=== PATIENT | male | born 1950 | race Caucasian/White ===

== ENCOUNTER 2016-10-17 19:04 | Inpatient (IN) | payer BC, MEDICARE, OTHER ==
[~2016-10-17] VITALS: Ht 177.8 cm; Wt 110.0 kg
[~2016-10-17 19:04] MED LIST: ALBU0.63 NEB; ALBU8.5H3 INH; ALPR0.5T6 PO; CYAN500T2 PO; CYCL-259 PO; FLUN25SP INH; FOLI-17 PO; HYDR-3307 PO; INSU100V10 SQ; INSU100V8 SQ; KETO5DRO7 OP; LACT1CAP35 PO; LEFL10TA14 PO; METO-95 PO; METO25TA35 PO; MODA200T2 PO; OMEP-110 PO; OXYC80TA25 PO; PRED10TA PO; ROSU40TA PO; TOCI162D INJ
[2016-10-17] MEDS ORDERED: PROPOFOL 100 ML IV ONE (21:24)
[2016-10-17] MEDS ORDERED: NS + 20MEQ KCL 1,000 ML IV SCH (21:59)
[2016-10-17 22:00] VITALS: BP 106/76
[2016-10-17] MEDS ORDERED: FENTANYL PF 2,500 MCG in SODIUM CHLORIDE 0.9% 200 ML IV PRN (22:00)
[2016-10-17] MEDS ORDERED: ONDANSETRON 2MG/ML, 2ML IVPush PRN (22:00)
[2016-10-17] MEDS ORDERED: POLYETHYLENE GLYCOL 17 GM PACKET PO PRN (22:00)
[2016-10-17] MEDS ORDERED: LORazepam 2 MG/ML, 1ML IVPush PRN (22:00)
[2016-10-17] MEDS ORDERED: DOCUSATE 100 MG CAPSULE PO PRN (22:00)
[2016-10-17] MEDS ORDERED: PLEASE ENTER HEIGHT AND WEIGHT MC SCH (22:30)
[2016-10-17] MEDS: NAFCILLIN 2 GM in DEXTROSE 5% 100 ML IV SCH (23:05)
[2016-10-17] MEDS: INSULIN ASPART 100 UNITS/ML, PEN SQ-INSULIN SCH (23:20)
[2016-10-18] MEDS: PROPOFOL 100 ML IV PRN ×6 (00:56→21:46)
[2016-10-18] MEDS ORDERED: LIDOCAINE-MPF 1%, 2ML ENDO PRN (01:00)
[2016-10-18] MEDS: ALBUTEROL/IPRATROPIUM 2.5MG/0.5MG, 3 ML INLINE SCH ×6 (01:00→22:00)
[2016-10-18] MEDS ORDERED: PHARMACY MAY ADJ FOR RENAL FX MC SCH (01:00)
[2016-10-18] MEDS: NAFCILLIN 2 GM in DEXTROSE 5% 100 ML IV SCH ×2 (03:03→06:48)
[2016-10-18] MEDS: FENTANYL PF 2,500 MCG in SODIUM CHLORIDE 0.9% 200 ML IV PRN (03:34)
[2016-10-18 04:00] VITALS: BP 124/76
[2016-10-18 04:32] LABS: ABG COLLECTION SITE RIGHT RADIAL; COLLATERAL CIRCULATION TESTING NORMAL
[2016-10-18] MEDS: INSULIN ASPART 100 UNITS/ML, PEN SQ-INSULIN SCH ×4 (04:55→21:48)
[2016-10-18 05:15] LABS: ASPARTATE AMINO TRANSFERASE 18 U/L (15-37); BLOOD UREA NITROGEN 15 mg/dL (7-18)
[2016-10-18] MEDS ORDERED: SODIUM CHLORIDE 0.9%, 500ML IVBOLUS ONE ×2 (07:30→22:00)
[2016-10-18] MEDS ORDERED: NAFCILLIN IVPB SCH (09:30)
[2016-10-18] MEDS ORDERED: SODIUM CHLORIDE 0.9% 1,000ML IV ONE (09:30)
[2016-10-18] MEDS ORDERED: DEXTROSE 5% IVPB SCH (09:30)
[2016-10-18] MEDS ORDERED: METOPROLOL TARTRATE 25 MG TABLET PO SCH (11:30)
[2016-10-18] MEDS: PANTOPRAZOLE 40 MG IV IVPush SCH (12:22)
[2016-10-18] MEDS: SENNA/DOCUSATE TABLET PO SCH (12:23)
[2016-10-18] MEDS: POTASSIUM CHLORIDE 20 MEQ PACKET NG SCH ×2 (12:23→21:48)
[2016-10-18 14:07] LABS: C-REACTIVE PROTEIN, QUANT > 19.00 mg/dL (0.02-0.49)
[2016-10-18] MEDS: METOPROLOL TARTRATE 25 MG TABLET PO SCH (17:24)
[2016-10-18] MEDS: NS + 20MEQ KCL 1,000 ML IV SCH (22:37)
[2016-10-18] MEDS: morphine SULFATE 10 MG/ML, 1ML IVPush PRN (23:05)
[2016-10-19] MEDS: METOPROLOL TARTRATE 25 MG TABLET PO SCH ×5 (00:19→20:56)
[2016-10-19] MEDS: PROPOFOL 100 ML IV PRN ×5 (01:17→22:23)
[2016-10-19] MEDS: FENTANYL PF 2,500 MCG in SODIUM CHLORIDE 0.9% 200 ML IV PRN ×2 (01:45→14:12)
[2016-10-19] MEDS: ALBUTEROL/IPRATROPIUM 2.5MG/0.5MG, 3 ML INLINE SCH ×2 (01:55→06:32)
[2016-10-19 03:20] LABS: BLOOD UREA NITROGEN 13 mg/dL (7-18)
[2016-10-19] MEDS ORDERED: DILTIAZEM 5 MG/ML, 5ML IVPush ONE (04:00)
[2016-10-19] MEDS: morphine SULFATE 10 MG/ML, 1ML IVPush PRN ×2 (04:06→20:53)
[2016-10-19] MEDS: INSULIN ASPART 100 UNITS/ML, PEN SQ-INSULIN SCH ×4 (04:08→20:55)
[2016-10-19] MEDS: NS + 20MEQ KCL 1,000 ML IV SCH ×3 (04:23→17:04)
[2016-10-19] MEDS ORDERED: DILTIAZEM 125 MG in SODIUM CHLORIDE 0.9% 100 ML IV PRN (04:30)
[2016-10-19 04:40] LABS: ABG COLLECTION SITE NOT DOCUMENTED
[2016-10-19] MEDS: PANTOPRAZOLE 40 MG IV IVPush SCH (10:24)
[2016-10-19] MEDS: SENNA/DOCUSATE TABLET PO SCH (10:25)
[2016-10-19] MEDS: DILTIAZEM 30 MG TABLET PO SCH ×3 (10:35→20:55)
[2016-10-19] MEDS: NAFCILLIN IVPB SCH (10:35)
[2016-10-19] MEDS: SODIUM CHLORIDE 0.9% IVPB SCH (10:35)
[2016-10-19] MEDS ORDERED: ONDANSETRON 2MG/ML, 2ML IVPush PRN (14:30)
[2016-10-19] MEDS ORDERED: FLUNISOLIDE INH PRN (14:30)
[2016-10-19] MEDS ORDERED: METHOCARBAMOL 750 MG TABLET PO PRN (14:30)
[2016-10-19] MEDS ORDERED: MAGNESIUM HYDROXIDE 8%, 30ML UDC PO PRN (14:30)
[2016-10-19] MEDS ORDERED: OxyconTIN ER 40 MG TAB.ER PO PRN (14:30)
[2016-10-19] MEDS ORDERED: morphine SULFATE 10 MG/ML, 1ML IVPush PRN (14:30)
[2016-10-19] MEDS ORDERED: INSULIN REGULAR 100 UNITS/ML, 3ML VIAL SQ-INSULIN SCH (14:30)
[2016-10-19] MEDS ORDERED: ALBUTEROL SULFATE 2.5 MG/3 ML NEB PRN (14:30)
[2016-10-19] MEDS ORDERED: BISACODYL 10 MG SUPP PR PRN (14:30)
[2016-10-19] MEDS ORDERED: MODAFINIL 100 MG TABLET PO PRN (14:30)
[2016-10-19] MEDS ORDERED: DIPHENHYDRAMINE 50 MG/ML, 1ML IVPush PRN (14:30)
[2016-10-19] MEDS ORDERED: HYDROcodone/APAP 10/325 MG TABLET PO PRN (14:30)
[2016-10-19] MEDS ORDERED: SENNA/DOCUSATE TABLET PO PRN (14:30)
[2016-10-19] MEDS ORDERED: PHARMACY MAY ADJ FOR RENAL FX MC PRN (14:30)
[2016-10-19] MEDS ORDERED: PROMETHAZINE 25 MG/ML, 1ML IM PRN (14:30)
[2016-10-19] MEDS ORDERED: KETOTIFEN FUMARATE OP PRN (14:30)
[2016-10-19] MEDS ORDERED: NS + 20MEQ KCL 1,000 ML IV SCH (14:30)
[2016-10-19] MEDS ORDERED: ALBUTEROL SULFATE 2.5 MG/3 ML NPPB PRN (14:30)
[2016-10-19] MEDS ORDERED: PROPOFOL 10 MG/ML, 50ML ONE (15:02)
[2016-10-19] MEDS ORDERED: ROCURONIUM 10 MG/ML ONE (15:02)
[2016-10-19] MEDS ORDERED: FENTANYL PF 100 MCG/2ML ONE (15:39)
[2016-10-19] MEDS ORDERED: BUPIVACAINE/PF-EPI 0.5% 1:200K INFIL ONE (15:50)
[2016-10-19] MEDS ORDERED: THROMBIN 5,000 UNIT VIAL TP ONE (16:26)
[2016-10-19] MEDS: LACTOBACILLUS CHEW TABLET PO SCH (16:59)
[2016-10-19] MEDS: ATORVASTATIN 40 MG TABLET PO SCH (20:55)
[2016-10-19] MEDS ORDERED: INSULIN DETEMIR 100 UNITS/ML, PEN SQ-INSULIN SCH (21:00)
[2016-10-19] MEDS: ACETAMINOPHEN 325 MG TABLET PO PRN (21:39)
[2016-10-20] MEDS: NS + 20MEQ KCL 1,000 ML IV SCH ×2 (00:40→07:20)
[2016-10-20] MEDS: FENTANYL PF 2,500 MCG in SODIUM CHLORIDE 0.9% 200 ML IV PRN ×2 (02:43→17:06)
[2016-10-20] MEDS ORDERED: DILTIAZEM 5 MG/ML, 5ML IVPush PRN (03:00)
[2016-10-20] MEDS: DILTIAZEM 5 MG/ML, 5ML IVPush PRN (03:09)
[2016-10-20] MEDS: DILTIAZEM 30 MG TABLET PO SCH ×4 (03:11→21:13)
[2016-10-20 04:28] LABS: ABG COLLECTION SITE RIGHT RADIAL; COLLATERAL CIRCULATION TESTING NORMAL
[2016-10-20 04:39] LABS: BLOOD UREA NITROGEN 12 mg/dL (7-18)
[2016-10-20] MEDS: PROPOFOL 100 ML IV PRN ×3 (04:48→23:54)
[2016-10-20] MEDS: METOPROLOL TARTRATE 25 MG TABLET PO SCH ×4 (04:51→21:13)
[2016-10-20] MEDS: INSULIN ASPART 100 UNITS/ML, PEN SQ-INSULIN SCH ×4 (04:51→21:11)
[2016-10-20] MEDS: SENNA/DOCUSATE TABLET PO SCH (08:34)
[2016-10-20] MEDS: CYANOCOBALAMIN 1,000 MCG TABLET PO SCH (08:36)
[2016-10-20] MEDS: FOLIC ACID 1 MG TABLET PO SCH (08:38)
[2016-10-20] MEDS ORDERED: METOPROLOL SUCCINATE 100 MG TAB.ER.24H PO SCH (09:00)
[2016-10-20] MEDS: OMEPRAZOLE 20 MG CAPSULE.DR PO SCH (09:19)
[2016-10-20] MEDS: NAFCILLIN IVPB SCH (13:19)
[2016-10-20] MEDS: SODIUM CHLORIDE 0.9% IVPB SCH (13:19)
[2016-10-20] MEDS: LACTOBACILLUS CHEW TABLET PO SCH (17:06)
[2016-10-20] MEDS ORDERED: HEPARIN 5,000 UNITS/ML, 1ML IV ONE (18:00)
[2016-10-20] MEDS ORDERED: HEPARIN 25,000 UNITS/500ML PMX 500 ML IV PRN (18:00)
[2016-10-20] MEDS: ATORVASTATIN 40 MG TABLET PO SCH (21:13)
[2016-10-21] MEDS: HEPARIN 5,000 UNITS/ML, 1ML IV PRN ×3 (03:40→20:24)
[2016-10-21] MEDS: DILTIAZEM 30 MG TABLET PO SCH ×4 (04:24→20:58)
[2016-10-21 04:40] LABS: ABG COLLECTION SITE RIGHT RADIAL; COLLATERAL CIRCULATION TESTING NORMAL
[2016-10-21 04:57] LABS: BLOOD UREA NITROGEN 17 mg/dL (7-18)
[2016-10-21] MEDS: INSULIN ASPART 100 UNITS/ML, PEN SQ-INSULIN SCH ×4 (05:03→22:10)
[2016-10-21] MEDS: METOPROLOL TARTRATE 25 MG TABLET PO SCH ×4 (05:03→22:51)
[2016-10-21] MEDS: ALBUTEROL/IPRATROPIUM 2.5MG/0.5MG, 3 ML INLINE PRN ×2 (07:07→10:12)
[2016-10-21] MEDS: SODIUM BICARBONATE 4.2%, 5ML NPPB SCH ×5 (07:30→22:00)
[2016-10-21] MEDS ORDERED: SODIUM BICARBONATE 4.2%, 5ML ONE (07:31)
[2016-10-21] MEDS: FENTANYL PF 2,500 MCG in SODIUM CHLORIDE 0.9% 200 ML IV PRN ×2 (08:47→22:48)
[2016-10-21] MEDS: OMEPRAZOLE 20 MG CAPSULE.DR PO SCH (08:53)
[2016-10-21] MEDS: SENNA/DOCUSATE TABLET PO SCH (08:53)
[2016-10-21] MEDS: FOLIC ACID 1 MG TABLET PO SCH (08:54)
[2016-10-21] MEDS: CYANOCOBALAMIN 1,000 MCG TABLET PO SCH (08:54)
[2016-10-21] MEDS: PROPOFOL 100 ML IV PRN ×2 (09:58→14:57)
[2016-10-21] MEDS ORDERED: LIDOCAINE 2%, 20ML ONE ×2 (09:58→11:33)
[2016-10-21] MEDS ORDERED: ALBUMIN HUMAN 25% 100 ML IV ONE (10:00)
[2016-10-21] MEDS ORDERED: FUROSEMIDE 40 MG/4 ML IV ONE (10:00)
[2016-10-21] MEDS ORDERED: POTASSIUM CHLORIDE 20 MEQ TAB.ER.PRT PO ONE (10:00)
[2016-10-21] MEDS: DILTIAZEM 5 MG/ML, 5ML IVPush PRN (11:48)
[2016-10-21] MEDS ORDERED: VISIPAQUE 270 MG/ML, 50ML BOTTLE ONE (12:24)
[2016-10-21] MEDS: SODIUM CHLORIDE 0.9% IVPB SCH (13:40)
[2016-10-21] MEDS: NAFCILLIN IVPB SCH (13:40)
[2016-10-21] MEDS: ALBUTEROL SULFATE 2.5 MG/3 ML NPPB SCH ×3 (14:12→22:00)
[2016-10-21] MEDS ORDERED: FUROSEMIDE 40 MG/4 ML ONE (14:45)
[2016-10-21] MEDS: LACTOBACILLUS CHEW TABLET PO SCH (17:14)
[2016-10-21] MEDS: ATORVASTATIN 40 MG TABLET PO SCH (20:57)
[2016-10-22] MEDS: PROPOFOL 100 ML IV PRN ×5 (00:17→18:00)
[2016-10-22] MEDS: SODIUM BICARBONATE 4.2%, 5ML NPPB SCH ×6 (02:05→22:20)
[2016-10-22] MEDS: ALBUTEROL SULFATE 2.5 MG/3 ML NPPB SCH ×6 (02:05→22:20)
[2016-10-22 03:51] LABS: ABG COLLECTION SITE RIGHT RADIAL; COLLATERAL CIRCULATION TESTING NORMAL
[2016-10-22 04:04] VITALS: BP 145/70
[2016-10-22] MEDS: HEPARIN 5,000 UNITS/ML, 1ML IV PRN (04:09)
[2016-10-22] MEDS: DILTIAZEM 30 MG TABLET PO SCH ×4 (04:09→21:20)
[2016-10-22] MEDS: INSULIN ASPART 100 UNITS/ML, PEN SQ-INSULIN SCH ×4 (04:23→22:31)
[2016-10-22] MEDS: METOPROLOL TARTRATE 25 MG TABLET PO SCH ×4 (04:48→23:48)
[2016-10-22 04:54] LABS: BLOOD UREA NITROGEN 22 mg/dL (7-18)
[2016-10-22] MEDS ORDERED: POTASSIUM CHLORIDE 10% 40 MEQ/30 ML UDC PO ONE (07:30)
[2016-10-22] MEDS: CYANOCOBALAMIN 1,000 MCG TABLET PO SCH (10:02)
[2016-10-22] MEDS: FOLIC ACID 1 MG TABLET PO SCH (10:04)
[2016-10-22] MEDS: OMEPRAZOLE 20 MG CAPSULE.DR PO SCH (10:04)
[2016-10-22] MEDS: SENNA/DOCUSATE TABLET PO SCH (10:04)
[2016-10-22] MEDS: FENTANYL PF 2,500 MCG in SODIUM CHLORIDE 0.9% 200 ML IV PRN (11:37)
[2016-10-22] MEDS ORDERED: TALC 30 GM AERO.PWD INTRAPL ONE (13:37)
[2016-10-22] MEDS ORDERED: BUPIVACAINE/PF-EPI 0.5% 1:200K ONE (13:37)
[2016-10-22] MEDS ORDERED: ROCURONIUM 10 MG/ML ONE (13:45)
[2016-10-22] MEDS ORDERED: PROPOFOL 10 MG/ML, 20ML ONE (13:45)
[2016-10-22] MEDS: SODIUM CHLORIDE 0.9% IVPB SCH (16:46)
[2016-10-22] MEDS: NAFCILLIN IVPB SCH (16:46)
[2016-10-22] MEDS: LACTOBACILLUS CHEW TABLET PO SCH (16:47)
[2016-10-22] MEDS: ATORVASTATIN 40 MG TABLET PO SCH (21:20)
[2016-10-23] MEDS: PROPOFOL 100 ML IV PRN ×5 (00:36→21:19)
[2016-10-23] MEDS: SODIUM BICARBONATE 4.2%, 5ML NPPB SCH ×5 (02:15→22:15)
[2016-10-23] MEDS: ALBUTEROL SULFATE 2.5 MG/3 ML NPPB SCH ×6 (02:15→22:15)
[2016-10-23] MEDS: DILTIAZEM 30 MG TABLET PO SCH ×4 (03:23→21:12)
[2016-10-23] MEDS: FENTANYL PF 2,500 MCG in SODIUM CHLORIDE 0.9% 200 ML IV PRN ×2 (03:24→19:31)
[2016-10-23 04:00] VITALS: BP 126/64
[2016-10-23 04:08] LABS: ABG COLLECTION SITE ARTERIAL LINE
[2016-10-23 04:21] LABS: BLOOD UREA NITROGEN 24 mg/dL (7-18)
[2016-10-23] MEDS: INSULIN ASPART 100 UNITS/ML, PEN SQ-INSULIN SCH ×4 (04:26→22:41)
[2016-10-23] MEDS: METOPROLOL TARTRATE 25 MG TABLET PO SCH ×4 (05:59→23:49)
[2016-10-23] MEDS: FOLIC ACID 1 MG TABLET PO SCH (08:03)
[2016-10-23] MEDS: CYANOCOBALAMIN 1,000 MCG TABLET PO SCH (08:04)
[2016-10-23] MEDS: OMEPRAZOLE 20 MG CAPSULE.DR PO SCH (08:04)
[2016-10-23] MEDS: SENNA/DOCUSATE TABLET PO SCH (08:05)
[2016-10-23] MEDS ORDERED: POTASSIUM CHLORIDE 20 MEQ TAB.ER.PRT PO SCH (09:00)
[2016-10-23 14:07] LABS: COCCIDIOIDES IGG 0.6 IV (<=0.9); COCCIDIOIDES IGM 0.1 IV (<=0.9)
[2016-10-23] MEDS: LACTOBACILLUS CHEW TABLET PO SCH (15:43)
[2016-10-23] MEDS: DILTIAZEM 5 MG/ML, 5ML IVPush PRN ×2 (20:22→21:24)
[2016-10-23] MEDS: SODIUM CHLORIDE 0.9% IVPB SCH (20:23)
[2016-10-23] MEDS: NAFCILLIN IVPB SCH (20:23)
[2016-10-23] MEDS ORDERED: POTASSIUM CHLORIDE 10% 40 MEQ/30 ML UDC PO SCH (21:00)
[2016-10-23] MEDS: ATORVASTATIN 40 MG TABLET PO SCH (21:11)
[2016-10-23] MEDS ORDERED: AMIODARONE 900 MG in DEXTROSE 5% 482 ML IV PRN (22:30)
[2016-10-23] MEDS ORDERED: FILTER 0.22 MICRON IV PRN (22:30)
[2016-10-23] MEDS ORDERED: AMIODARONE 150 MG in DEXTROSE 5% 100 ML IV ONE (22:30)
[2016-10-23] MEDS: ACETAMINOPHEN 325 MG TABLET PO PRN (23:29)
[2016-10-24] MEDS: SODIUM BICARBONATE 4.2%, 5ML NPPB SCH ×6 (02:45→22:15)
[2016-10-24] MEDS: ALBUTEROL SULFATE 2.5 MG/3 ML NPPB SCH ×6 (02:45→22:15)
[2016-10-24] MEDS: DILTIAZEM 30 MG TABLET PO SCH ×4 (03:27→21:23)
[2016-10-24] MEDS: PROPOFOL 100 ML IV PRN ×2 (03:31→21:51)
[2016-10-24 03:49] LABS: ABG COLLECTION SITE ARTERIAL LINE
[2016-10-24 04:00] VITALS: BP 106/56
[2016-10-24 04:07] LABS: BLOOD UREA NITROGEN 32 mg/dL (7-18)
[2016-10-24] MEDS: INSULIN ASPART 100 UNITS/ML, PEN SQ-INSULIN SCH ×4 (05:08→22:28)
[2016-10-24] MEDS: METOPROLOL TARTRATE 25 MG TABLET PO SCH ×3 (05:32→17:38)
[2016-10-24 09:19] LABS: IS PT STATUS REG ER OR PRE ER? NO
[2016-10-24] MEDS: DEXTROSE 5% IVPB SCH (10:40)
[2016-10-24] MEDS: FOLIC ACID 1 MG TABLET PO SCH (10:40)
[2016-10-24] MEDS: SENNA/DOCUSATE TABLET PO SCH (10:40)
[2016-10-24] MEDS: NAFCILLIN IVPB SCH (10:40)
[2016-10-24] MEDS: OMEPRAZOLE 20 MG CAPSULE.DR PO SCH (10:41)
[2016-10-24] MEDS: CYANOCOBALAMIN 1,000 MCG TABLET PO SCH (10:41)
[2016-10-24] MEDS: FENTANYL PF 2,500 MCG in SODIUM CHLORIDE 0.9% 200 ML IV PRN (12:10)
[2016-10-24] MEDS ORDERED: POTASSIUM CHLORIDE 20 MEQ PACKET PO ONE (13:30)
[2016-10-24] MEDS: LACTOBACILLUS CHEW TABLET PO SCH (15:32)
[2016-10-24] MEDS: INSULIN DETEMIR 100 UNITS/ML, PEN SQ-INSULIN SCH (15:36)
[2016-10-24] MEDS: ATORVASTATIN 40 MG TABLET PO SCH (21:23)
[2016-10-25] MEDS: METOPROLOL TARTRATE 25 MG TABLET PO SCH ×4 (00:04→18:19)
[2016-10-25] MEDS: INSULIN DETEMIR 100 UNITS/ML, PEN SQ-INSULIN SCH ×2 (01:39→13:30)
[2016-10-25] MEDS: SODIUM BICARBONATE 4.2%, 5ML NPPB SCH ×7 (02:30→22:00)
[2016-10-25] MEDS: ALBUTEROL SULFATE 2.5 MG/3 ML NPPB SCH ×6 (02:30→22:00)
[2016-10-25] MEDS: PROPOFOL 100 ML IV PRN ×4 (03:31→20:48)
[2016-10-25] MEDS: DILTIAZEM 30 MG TABLET PO SCH ×4 (03:37→20:41)
[2016-10-25 04:00] VITALS: BP 133/62
[2016-10-25 04:33] LABS: ABG COLLECTION SITE ARTERIAL LINE
[2016-10-25 04:43] LABS: BLOOD UREA NITROGEN 32 mg/dL (7-18)
[2016-10-25] MEDS: INSULIN ASPART 100 UNITS/ML, PEN SQ-INSULIN SCH ×4 (04:54→22:31)
[2016-10-25] MEDS: FENTANYL PF 2,500 MCG in SODIUM CHLORIDE 0.9% 200 ML IV PRN (06:57)
[2016-10-25] MEDS: FOLIC ACID 1 MG TABLET PO SCH (08:40)
[2016-10-25] MEDS: CYANOCOBALAMIN 1,000 MCG TABLET PO SCH (08:41)
[2016-10-25] MEDS: SENNA/DOCUSATE TABLET PO SCH (08:48)
[2016-10-25] MEDS: OMEPRAZOLE 20 MG CAPSULE.DR PO SCH (11:14)
[2016-10-25] MEDS: NAFCILLIN IVPB SCH (13:17)
[2016-10-25] MEDS: DEXTROSE 5% IVPB SCH (13:17)
[2016-10-25] MEDS: LACTOBACILLUS CHEW TABLET PO SCH (14:51)
[2016-10-25] MEDS: ATORVASTATIN 40 MG TABLET PO SCH (20:41)
[2016-10-26] MEDS: METOPROLOL TARTRATE 25 MG TABLET PO SCH ×4 (00:18→17:05)
[2016-10-26] MEDS: SODIUM BICARBONATE 4.2%, 5ML NPPB SCH ×6 (01:40→22:14)
[2016-10-26] MEDS: ALBUTEROL SULFATE 2.5 MG/3 ML NPPB SCH ×6 (01:40→22:15)
[2016-10-26] MEDS: ACETAMINOPHEN 325 MG TABLET PO PRN (02:16)
[2016-10-26] MEDS: AMIODARONE 900 MG in DEXTROSE 5% 482 ML IV PRN ×2 (02:26→21:45)
[2016-10-26] MEDS ORDERED: FILTER 0.22 MICRON IV PRN (02:30)
[2016-10-26] MEDS: INSULIN DETEMIR 100 UNITS/ML, PEN SQ-INSULIN SCH ×2 (02:40→14:07)
[2016-10-26] MEDS: FENTANYL PF 2,500 MCG in SODIUM CHLORIDE 0.9% 200 ML IV PRN (03:00)
[2016-10-26] MEDS: DILTIAZEM 30 MG TABLET PO SCH ×4 (03:55→19:46)
[2016-10-26] MEDS: INSULIN ASPART 100 UNITS/ML, PEN SQ-INSULIN SCH ×4 (05:10→23:01)
[2016-10-26 05:44] VITALS: BP 143/79
[2016-10-26 05:45] LABS: ABG COLLECTION SITE ARTERIAL LINE
[2016-10-26 06:05] LABS: BLOOD UREA NITROGEN 34 mg/dL (7-18)
[2016-10-26] MEDS: PROPOFOL 100 ML IV PRN ×5 (06:10→21:45)
[2016-10-26] MEDS: SENNA/DOCUSATE TABLET PO SCH (09:00)
[2016-10-26] MEDS: FOLIC ACID 1 MG TABLET PO SCH (09:58)
[2016-10-26] MEDS: CYANOCOBALAMIN 1,000 MCG TABLET PO SCH (09:58)
[2016-10-26] MEDS: OMEPRAZOLE 20 MG CAPSULE.DR PO SCH (09:59)
[2016-10-26] MEDS: HEPARIN 25,000 UNITS/500ML PMX 500 ML IV PRN (11:12)
[2016-10-26] MEDS: CEFEPIME 2 GM in DEXTROSE 5% 100 ML IV SCH ×2 (12:05→19:46)
[2016-10-26] MEDS: MICAFUNGIN 100 MG in SODIUM CHLORIDE 0.9% 100 ML IV SCH (13:59)
[2016-10-26] MEDS ORDERED: HEPARIN 5,000 UNITS/ML, 1ML IV ONE (15:30)
[2016-10-26] MEDS: LACTOBACILLUS CHEW TABLET PO SCH (17:05)
[2016-10-26] MEDS: ATORVASTATIN 40 MG TABLET PO SCH (19:46)
[2016-10-26] MEDS: HEPARIN 5,000 UNITS/ML, 1ML IV PRN (19:57)
[2016-10-27] MEDS: METOPROLOL TARTRATE 25 MG TABLET PO SCH ×5 (00:05→20:17)
[2016-10-27] MEDS: PROPOFOL 100 ML IV PRN ×3 (02:13→20:35)
[2016-10-27] MEDS: INSULIN DETEMIR 100 UNITS/ML, PEN SQ-INSULIN SCH ×2 (02:14→10:51)
[2016-10-27] MEDS: ALBUTEROL SULFATE 2.5 MG/3 ML NPPB SCH ×6 (02:25→22:00)
[2016-10-27] MEDS: SODIUM BICARBONATE 4.2%, 5ML NPPB SCH ×6 (02:25→22:00)
[2016-10-27] MEDS: HEPARIN 5,000 UNITS/ML, 1ML IV PRN ×4 (03:40→21:39)
[2016-10-27 04:15] LABS: ABG COLLECTION SITE NOT DOCUMENTED
[2016-10-27 04:36] LABS: BLOOD UREA NITROGEN 32 mg/dL (7-18)
[2016-10-27] MEDS: DILTIAZEM 30 MG TABLET PO SCH ×4 (04:52→20:17)
[2016-10-27] MEDS: CEFEPIME 2 GM in DEXTROSE 5% 100 ML IV SCH ×3 (04:52→20:16)
[2016-10-27] MEDS: INSULIN ASPART 100 UNITS/ML, PEN SQ-INSULIN SCH ×4 (04:53→23:17)
[2016-10-27] MEDS: HEPARIN 25,000 UNITS/500ML PMX 500 ML IV PRN (07:52)
[2016-10-27] MEDS: SENNA/DOCUSATE TABLET PO SCH (09:00)
[2016-10-27] MEDS: OMEPRAZOLE 20 MG CAPSULE.DR PO SCH (09:00)
[2016-10-27] MEDS: CYANOCOBALAMIN 1,000 MCG TABLET PO SCH (09:00)
[2016-10-27] MEDS: POTASSIUM CHLORIDE 20 MEQ TAB.ER.PRT PO SCH ×2 (09:01→16:52)
[2016-10-27] MEDS: FOLIC ACID 1 MG TABLET PO SCH (09:01)
[2016-10-27] MEDS: AMIODARONE 200 MG TABLET PO SCH ×2 (11:31→20:17)
[2016-10-27] MEDS: MICAFUNGIN 100 MG in SODIUM CHLORIDE 0.9% 100 ML IV SCH (13:53)
[2016-10-27] MEDS: LACTOBACILLUS CHEW TABLET PO SCH (16:52)
[2016-10-27] MEDS: FENTANYL PF 2,500 MCG in SODIUM CHLORIDE 0.9% 200 ML IV PRN (17:26)
[2016-10-27] MEDS: ATORVASTATIN 40 MG TABLET PO SCH (20:18)
[2016-10-28] MEDS: PROPOFOL 100 ML IV PRN ×4 (00:36→19:19)
[2016-10-28] MEDS: SODIUM BICARBONATE 4.2%, 5ML NPPB SCH ×3 (02:00→22:58)
[2016-10-28] MEDS: ALBUTEROL SULFATE 2.5 MG/3 ML NPPB SCH ×6 (02:00→22:58)
[2016-10-28] MEDS: INSULIN DETEMIR 100 UNITS/ML, PEN SQ-INSULIN SCH ×2 (02:52→11:23)
[2016-10-28 04:27] LABS: ABG COLLECTION SITE ARTERIAL LINE
[2016-10-28 04:37] LABS: BLOOD UREA NITROGEN 32 mg/dL (7-18)
[2016-10-28] MEDS: DILTIAZEM 30 MG TABLET PO SCH ×4 (04:44→20:59)
[2016-10-28] MEDS: CEFEPIME 2 GM in DEXTROSE 5% 100 ML IV SCH ×3 (04:44→20:58)
[2016-10-28] MEDS: METOPROLOL TARTRATE 25 MG TABLET PO SCH ×4 (04:44→20:59)
[2016-10-28] MEDS: INSULIN ASPART 100 UNITS/ML, PEN SQ-INSULIN SCH ×4 (04:45→22:55)
[2016-10-28] MEDS: AMIODARONE 200 MG TABLET PO SCH ×2 (09:28→21:00)
[2016-10-28] MEDS: CYANOCOBALAMIN 1,000 MCG TABLET PO SCH (09:28)
[2016-10-28] MEDS: SENNA/DOCUSATE TABLET PO SCH (09:29)
[2016-10-28] MEDS: FOLIC ACID 1 MG TABLET PO SCH (09:29)
[2016-10-28] MEDS: OMEPRAZOLE 20 MG CAPSULE.DR PO SCH (09:29)
[2016-10-28] MEDS: POTASSIUM CHLORIDE 20 MEQ TAB.ER.PRT PO SCH ×2 (09:29→16:29)
[2016-10-28] MEDS: HEPARIN 5,000 UNITS/ML, 1ML IV PRN ×2 (10:24→18:30)
[2016-10-28] MEDS: HEPARIN 25,000 UNITS/500ML PMX 500 ML IV PRN ×2 (10:31→22:53)
[2016-10-28] MEDS: MICAFUNGIN 100 MG in SODIUM CHLORIDE 0.9% 100 ML IV SCH (13:59)
[2016-10-28] MEDS: LACTOBACILLUS CHEW TABLET PO SCH (16:29)
[2016-10-28] MEDS ORDERED: SODIUM CHLORIDE 0.9%, 500ML IVBOLUS ONE (17:00)
[2016-10-28] MEDS: ATORVASTATIN 40 MG TABLET PO SCH (20:59)
[2016-10-28] MEDS: FENTANYL PF 2,500 MCG in SODIUM CHLORIDE 0.9% 200 ML IV PRN (22:53)
[2016-10-29] MEDS: PROPOFOL 100 ML IV PRN ×2 (01:38→05:39)
[2016-10-29] MEDS: INSULIN DETEMIR 100 UNITS/ML, PEN SQ-INSULIN SCH (01:38)
[2016-10-29] MEDS: ALBUTEROL SULFATE 2.5 MG/3 ML NPPB SCH ×3 (01:55→10:56)
[2016-10-29] MEDS: SODIUM BICARBONATE 4.2%, 5ML NPPB SCH ×3 (01:55→10:55)
[2016-10-29] MEDS: CEFEPIME 2 GM in DEXTROSE 5% 100 ML IV SCH ×2 (04:14→12:00)
[2016-10-29] MEDS: METOPROLOL TARTRATE 25 MG TABLET PO SCH ×2 (04:14→11:30)
[2016-10-29] MEDS: DILTIAZEM 30 MG TABLET PO SCH ×2 (04:15→08:28)
[2016-10-29 04:22] LABS: ABG COLLECTION SITE ARTERIAL LINE
[2016-10-29 04:34] LABS: BLOOD UREA NITROGEN 37 mg/dL (7-18)
[2016-10-29] MEDS: INSULIN ASPART 100 UNITS/ML, PEN SQ-INSULIN SCH ×2 (05:33→12:00)
[2016-10-29] MEDS: POTASSIUM CHLORIDE 20 MEQ TAB.ER.PRT PO SCH ×2 (08:00→08:23)
[2016-10-29] MEDS: AMIODARONE 200 MG TABLET PO SCH (08:24)
[2016-10-29] MEDS: FOLIC ACID 1 MG TABLET PO SCH (08:24)
[2016-10-29] MEDS: OMEPRAZOLE 20 MG CAPSULE.DR PO SCH ×2 (08:25→09:00)
[2016-10-29] MEDS: CYANOCOBALAMIN 1,000 MCG TABLET PO SCH (08:26)
[2016-10-29] MEDS: SENNA/DOCUSATE TABLET PO SCH (08:26)
[2016-10-29] MEDS: HEPARIN 25,000 UNITS/500ML PMX 500 ML IV PRN (09:45)
[2016-10-29] MEDS ORDERED: ATROPINE OPHTH SOLN 1%, 2ML PO PRN (13:00)
[2016-10-29] MEDS ORDERED: LORazepam 2 MG/ML, 1ML IV ONE (13:00)
[2016-10-29] MEDS ORDERED: morphine SULFATE 10 MG/ML, 1ML IV ONE (13:00)
[2016-10-29] MEDS ORDERED: LORazepam 10 MG in DEXTROSE 5% 245 ML IV SCH (13:00)
== END 2016-10-29 14:25 | disposition expired | DRG 853 ==
LOC: CCU 21:20
PROVIDERS: ADMIT Internal Medicine Critical Care Medicine; ATTEND Family Medicine
PROC: 0BH17EZ Insertion of Endotracheal Airway into Trachea, Via Natural or Artificial Opening (ICD-10-PCS; 2016-10-17)
PROC: 5A1955Z Respiratory Ventilation, Greater than 96 Consecutive Hours (ICD-10-PCS; 2016-10-17)
PROC: 0HD5XZZ Extraction of Chest Skin, External Approach (ICD-10-PCS; 2016-10-19)
PROC: 06H03DZ Insertion of Intraluminal Device into Inferior Vena Cava, Percutaneous Approach (ICD-10-PCS; principal; 2016-10-21)
PROC: B5191ZA Fluoroscopy of Inferior Vena Cava using Low Osmolar Contrast, Guidance (ICD-10-PCS; 2016-10-21)
PROC: 0W9B40Z Drainage of Left Pleural Cavity with Drainage Device, Percutaneous Endoscopic Approach (ICD-10-PCS; 2016-10-22)
PROC: 0T9B70Z Drainage of Bladder with Drainage Device, Via Natural or Artificial Opening (ICD-10-PCS; 2016-10-27)
DX: A41.01 Sepsis due to Methicillin susceptible Staphylococcus aureus (principal); G00.3 Staphylococcal meningitis; J96.00 Acute respiratory failure, unspecified whether with hypoxia or hypercapnia; K68.12 Psoas muscle abscess; G93.41 Metabolic encephalopathy; I26.99 Other pulmonary embolism without acute cor pulmonale; J15.211 Pneumonia due to Methicillin susceptible Staphylococcus aureus; J86.9 Pyothorax without fistula; K68.19 Other retroperitoneal abscess; E87.0 Hyperosmolality and hypernatremia; I47.1 Supraventricular tachycardia; I48.92 Unspecified atrial flutter; J44.0 Chronic obstructive pulmonary disease with (acute) lower respiratory infection; J81.1 Chronic pulmonary edema; J90 Pleural effusion, not elsewhere classified; M46.20 Osteomyelitis of vertebra, site unspecified; Z99.11 Dependence on respirator [ventilator] status; E11.40 Type 2 diabetes mellitus with diabetic neuropathy, unspecified; E78.5 Hyperlipidemia, unspecified; K21.9 Gastro-esophageal reflux disease without esophagitis; D64.9 Anemia, unspecified; E53.8 Deficiency of other specified B group vitamins; E83.51 Hypocalcemia; F41.9 Anxiety disorder, unspecified; G47.33 Obstructive sleep apnea (adult) (pediatric); G89.29 Other chronic pain; I10 Essential (primary) hypertension; I25.10 Atherosclerotic heart disease of native coronary artery without angina pectoris; I48.91 Unspecified atrial fibrillation; J84.10 Pulmonary fibrosis, unspecified; L89.159 Pressure ulcer of sacral region, unspecified stage; M06.9 Rheumatoid arthritis, unspecified; M19.90 Unspecified osteoarthritis, unspecified site; M46.40 Discitis, unspecified, site unspecified; M48.06 Spinal stenosis, lumbar region; Z51.5 Encounter for palliative care; Z72.0 Tobacco use; Z79.4 Long term (current) use of insulin; Z86.61 Personal history of infections of the central nervous system; Z86.711 Personal history of pulmonary embolism; Z95.810 Presence of automatic (implantable) cardiac defibrillator; Z98.1 Arthrodesis status
CPT/HCPCS: 31624; 36415; 36600; 37191; 49406; 70470; 71010; 72129; 72132; 72193; 74000; 76000; 76937; 80048; 80053; 81001; 82040; 82306; 82607; 82803; 82962; 83735; 84100; 84478; 84484; 85025; 85520; 85651; 86140; 86480; 86635; 86850; 86900; 87040; 87070; 87075; 87077; 87081; 87086; 87102; 87186; 87205; 93005; 93306; 94002; 94003; 94640; C1729; C1894; J1644; J1815; J1940; J2060; J2248; J2704; J3010; J3480; J3490; J7060; J7070; J7613; J7620; P9047; Q9966; C1769; C1880; C9113; J0282; J2270; J7030; J7040; J7050; J7512